=== PATIENT | male | born 1975 | race Caucasian/White ===

== ENCOUNTER 2017-08-11 09:26 | Observation (INO) ==
[2017-08-11] MEDS ORDERED: SALINE FLUSH 10ml SYRINGE IVF PRN (09:46)
--- NOTE | 2017-08-11 09:46 | Emergency Department Report ---
General Adult HPI - General Chief complaint: Abdominal Pain Stated complaint: right flank pain ,N/V unable to have bowel movemen Time Seen by Provider: 08/11/17 09:38 Source: patient Mode of arrival: ambulatory Limitations: no limitations - History of Present Illness HPI narrative: 41-year-old male presents the emergency department with a chief complaint of right sided flank discomfort radiating to his anterior abdomen. Patient denies any trauma, travel, poorly prepared food or recent antibiotic use. Patient notes that his discomfort started approximately 10 PM yesterday evening. Patient describes his pain as sharp. His pain is moderate. No other complaints or associated symptoms. He notes that his pain improved with fentanyl which was given from EMS prior to arrival to the emergency department today. Symptoms have been persistent in nature since onset. - Related Data Home Medications Medication Instructions Recorded Confirmed Acetaminophen/Diphenhydramine 4 each PO HS 08/11/17 08/11/17 [Acetaminophen Pm Caplet] Ibuprofen 4 - 6 cap PO PRN PRN 08/11/17 08/11/17 Allergies Allergy/AdvReac Type Severity Reaction Status Date / Time No Known Allergies Allergy Verified 08/11/17 09:37 Review of Systems Constitutional: Denies: fever, chills Eyes: Denies: eye pain, vision change ENT: Denies: ear pain, throat pain Cardiovascular: Denies: chest pain, palpitations Respiratory: Denies: cough, dyspnea Gastrointestinal: Reports: abdominal pain. Denies: nausea, vomiting, diarrhea Genitourinary: Denies: urgency, dysuria Musculoskeletal: Denies: back pain, arthralgia Integumentary: Denies: erythema, rash Neurological: Denies: headache, numbness Psychiatric: Denies: anxiety, depression Endocrine: Denies: fatigue, heat or cold intolerance Hematological/Lymphatic: Denies: easy bleeding, easy bruising Allergic/Immunologic: Denies: facial swelling, urticaria PFSH Patient Stated Medical History Hx Kidney Stones Yes Surgical History: Negative. Family History: Reviewed and noncontributory. - Social History Smoking status: Current every day smoker Substance use type: does not use Alcohol intake frequency: does not drink Physical Exam - Limitations Limitations: no limitations - General General appearance: alert, in no apparent distress - Normal Exams: Head:: Normocephalic without trauma Eyes:: Pupils are PERRLA w/ EOMI, No scleral icterus, irritation, or foreign bodies noted ENMT:: No facial trauma, nasal exudates, pharyngeal erythema, or exudates are noted Dental: No fractured, loose, or missing teeth noted Neck:: Full range of motion, without adenopathy, JVD, bruits or thyromegaly Chest/Respirations:: Clear all nixon, with good airflow, and symmetry bilaterally Cardiovascular:: Regular rate and rhythm, without murmur or gallop, Pulses 2+ all extremities, capillary refill, <2 seconds all extremities Abdomen:: Bowel sounds positive (soft. Right upper quadrant tenderness to palpation without rebound or guarding. No CVA tenderness.), non-distended, no hepatosplenomegaly, masses or bruits noted Lymphatic:: No lymphadenopathy, or lymphedema noted Musculoskeletal:: No tenderness, or deformity noted, good range of motion, all extremities Integumentary:: No rashes, hives, or bruising noted, hair and nails, without abnormality Neurological:: Patient is alert, and oriented, cranial nerves, motor/sensory/ cerebellar, exams w/o gross deficits, to observation Psychiatric:: Patient exhibits, appropriate attention, emotion and affect Course Vital Signs Temperature 98.3 F 08/11/17 09:25 Respiratory Rate 14 08/11/17 09:25 Temperature 98.3 F 08/11/17 09:25 Pulse Rate 71 08/11/17 13:15 Respiratory Rate 14 08/11/17 09:25 Blood Pressure 160/96 H 08/11/17 13:11 Pulse Oximetry 91 08/11/17 13:15 Medical Decision Making - [facility] Narrative Medical decision making narrative: Labs/imaging were discussed in detail with the patient and questions are answered. Patient is given IV hydration. Patient is given parental narcotic and antiemetic medications intravenously in the emergency Department. Patient is still having discomfort following treatment and is discussed with Dr. Eddy of general surgery who will take the patient to the operating room for cholelithiasis which is symptomatic. Patient is given 1 g of Invanz intravenously in the emergency Department. Patient is admitted to the service of Dr. Eddy in improved condition. No further orders from accepting physician is in agreement with the current plan of management. Patient and family are in agreement with the current plan of management. Patient is admitted to the hospital in improved condition. - Differential Diagnosis acute cholecystitis, cholelithiasis, renal stone, metabolic process, UTI - Lab Data Result diagrams: 08/11/17 10:41 08/11/17 10:41 Lab Results 08/11/17 08/11/17 08/11/17 Range/Units 10:32 10:41 10:41 WBC 14.1 H (4.5-11.0) T/MM3 RBC 4.86 (4.50-5.90) M/MM3 Hgb 15.4 (13.5-17.5) GM/DL Hct 44.5 (41-53) % MCV 91.6 (80-100) UM3 MCH 31.7 (26-34) UUG MCHC 34.6 (31-37) GM/DL RDW Std Deviation 41.6 (36.9-50.2) FL Plt Count 219 (130-400) T/MM3 MPV 9.9 (9.4-12.4) UM3 Immature Gran % (Auto) 0.2 (0.0-0.5) % Neut % (Auto) 82.9 H (33-66) % Lymph % (Auto) 11.8 L (23-45) % Barren % (Auto) 4.6 (0-9.0) % Eos % (Auto) 0.4 (0-4) % Baso % (Auto) 0.1 (0-2) % Neut # (Auto) 11.7 H (1.8-7.7) T/MM3 Lymph # (Auto) 1.7 (1-4.8) T/MM3 Barren # (Auto) 0.7 (0-0.8) T/MM3 Eos # (Auto) 0.1 (0-0.5) T/MM3 Baso # (Auto) 0.0 (0-0.2) T/MM3 Abs Immat Gran (auto) 0.03 (0.00-0.03) T/MM3 Turbidity < 20 (0-20) Sodium 144 (134-144) MEQ/L Potassium 3.9 (3.6-5) MEQ/L Chloride 109 H (98-107) MEQ/L Carbon Dioxide 26 (22-30) MEQ/L Anion Gap 9 (5-15) MEQ/L BUN 17.0 (9-20) MG/DL Creatinine 0.8 (0.8-1.5) MG/DL GFR Calculation 108 BUN/Creatinine Ratio 21 (6-26) RATIO Glucose 122 H (75-110) MG/DL Calculated Osmolality 280 (261-280) MOSM/KG Calcium 9.7 (8.4-10.2) MG/DL Total Bilirubin 0.40 (0.20-1.30) MG/DL Icterus Index < 2 (0-7) AST 21 (17-59) U/L ALT 53 (21-72) U/L Alkaline Phosphatase 57 (38-126) U/L Troponin I < 0.012 (0-0.12) ng/ml Total Protein 7.4 (6.3-8.2) G/DL Albumin 4.5 (3.5-5.0) G/DL Globulin 2.9 (2.4-3.6) G/DL Albumin/Globulin Ratio 1.6 (1.1-2.2) RATIO Lipase 19 L (23-300) U/L Specimen Hemolysis < 15 (0-25) Ur Collection Type Urine, clean catch Urine Color Yellow (YELLOW) Urine Clarity Clear Urine pH 6.0 (5.0-8.0) Ur Specific Sharon 1.025 (1.015-1.025) Urine Protein Negative (NEGATIVE) Urine Glucose (UA) Negative (NEGATIVE) Urine Ketones Trace A (NEGATIVE) Urine Occult Blood Negative (NEGATIVE) Urine Nitrate Negative (NEGATIVE) Urine Bilirubin Negative (NEGATIVE) Urine Urobilinogen 0.2 (NORMAL) EU/DL Ur Leukocyte Esterase Negative (NEGATIVE) Urinalysis Comment Microscopic not ind. - Radiology Data CT abdomen/pelvis: Cholelithiasis otherwise no acute processes. - EKG Data EKG #1 EKG results narrative: Sinus bradycardia. 56 bpm. No STEMI. Disposition Clinical Impression: cholelithiasis Disposition: 02 To [facility] Condition: Improved Time of Disposition: 12:10 (Admit. Dr. Eddy.) - Seen By: physician
[2017-08-11] MEDS ORDERED: ONDANSETRON 4 MG/2 ML INJECTION IVP ONE (10:31)
[2017-08-11] MEDS ORDERED: FentaNYL 100 MCG/2 ML INJECTION IVP ONE (10:31)
[2017-08-11] MEDS: SALINE FLUSH 10ml SYRINGE IVF PRN ×2 (10:53→10:56)
--- NOTE | 2017-08-11 11:08 | CT Scan Report ---
Indication: Flank pain PROCEDURE: CT renal wo con (stone yanique): Encounter: Initial Comparison: 07/14/2017 Findings: CT ABDOMEN AND PELVIS WITHOUT CONTRAST: INDICATION: Flank pain Abdominal pain Automated Exposure Control and Iterative Reconstruction dose reducing techniques were utilized. COMPARISON: None. CT ABDOMEN: There are multiple gallstones within the gallbladder which is thin-walled and nondistended. Included portions of the lung bases are clear. The upper abdominal structures are unremarkable in contour. There is a small intrarenal nonobstructing urinary calculus in the lower pole of the right kidney, unchanged. No hydronephrosis or perinephric collection. CT PELVIS: A normal appendix is identified. The urinary bladder is not distended. There is no pelvic sidewall adenopathy. No free fluid. No definite bony destructive process. No definite evidence for a distal ureteral obstructing calculus. IMPRESSION: Nephrolithiasis on the right and cholecystitis without evidence for obstructing ureteral calculus. Previously noted calculus in the distal left ureter is no longer seen. .
[2017-08-11] MEDS ORDERED: NS 1,000 ML IV ONE (12:43)
[2017-08-11] MEDS ORDERED: HYDROMORPHONE 2 MG/ML INJECTION IVP ONE (12:43)
[2017-08-11] MEDS ORDERED: ERTAPENEM 1 G in NS 100 ML IV ONE (12:43)
[2017-08-11] MEDS ORDERED: HYDROMORPHONE 2 MG/ML INJECTION IVP PRN (12:59)
[2017-08-11] MEDS ORDERED: ONDANSETRON 4 MG/2 ML INJECTION IVP PRN (12:59)
--- NOTE | 2017-08-11 13:07 | General Surg History&Physical ---
- History of Present Illness Chief complaint: Epigastric and RUQ pain, nausea, bvomiting HPI: Per Dr. Duran [facility] Patient Stated Medical History Hx Kidney Stones Back pain Surgical History: None Family History: Father - HTN Mother - HTN, DM, Stroke - Social History Smoking status: Current every day smoker Substance use type: does not use Alcohol intake frequency: former alcohol drinker (quit 4-5 years ago) Current occupational status: unemployed Medications Home Medications Medication Instructions Recorded Confirmed Type No known Home medications [No home 07/14/17 08/11/17 History meds] Allergies Allergy/AdvReac Type Severity Reaction Status Date / Time No Known Allergies Allergy Verified 08/11/17 09:37 Review of Systems 10-point ROS: negative except for HPI and the following: - Eyes/Ears/Nose/Throat Ear Nose Throat: Present: loose/chipped/cracked teeth - Gastrointestinal Gastrointestinal: Present: nausea, vomiting - Musculoskeletal Musculoskeletal: Present: back pain, joint pain - Vital Signs Last Vital Signs Temp 98.3 F 08/11/17 09:25 Pulse 61 08/11/17 09:32 Resp 14 08/11/17 09:25 BP 153/88 H 08/11/17 09:32 Pulse Ox 93 08/11/17 09:32 - Laboratory Result Diagrams: 08/11/17 10:41 08/11/17 10:41 General Surgery Results - Results Labs: 08/11/17 10:41 08/11/17 10:41 Hospital Course Summary Disclaimer: The visit summary below is not to be considered part of the above Progress Note.
[2017-08-11 13:45] VITALS: BMI 33.7
[2017-08-11] MEDS: NS 1,000 ML IV SCH (16:13)
[2017-08-12 01:00] VITALS: BP 149/92; PULSE 74; RESP 16; TEMP 97.5; O2SAT 96
[2017-08-12] MEDS: NS 1,000 ML IV SCH (02:06)
--- NOTE | 2017-08-12 07:08 | History and Physical ---
FINDINGS Mr. Delgadillo is a 41-year-old gentleman whom I was asked to see earlier today by the emergency room physician as a result of the patient's history and physical findings of severe abdominal pain in conjunction with the radiographic evidence for cholelithiasis. I had informed the ER physician from his report that the patient should be admitted for further care on an outpatient basis. Upon seeing the patient later this afternoon the patient informed me that his pain began yesterday. The pain was mostly located within his epigastric region, but he states that it did radiate in towards his back and right upper quadrant. Pain was constant in nature and quite severe per his report. The patient states that he began to develop severe nausea and vomiting after the onset of pain. The patient states that as a result of this severe pain he presented to the emergency room for further evaluation. Pain has been somewhat alleviated after receiving intravenous narcotics. This afternoon the patient states that he is beginning to "feel a little better." He denied specific aggravating symptoms when the pain was present. PAST MEDICAL HISTORY Performed by my nurse practitioner, Diaz Daly. PAST SURGICAL HISTORY Performed by my nurse practitioner, Diaz Daly. MEDICATIONS Performed by my nurse practitioner, Diaz Daly. ALLERGIES Performed by my nurse practitioner, Diaz Daly. SOCIAL HISTORY Performed by my nurse practitionerDiaz. FAMILY HISTORY Performed by my nurse practitioner, Diaz Daly. REVIEW OF SYSTEMS Performed by my nurse practitioner, Diaz Daly. PHYSICAL EXAMINATION Mr. Delgadillo is a 41-year-old male who does not appear to be in acute distress this ate afternoon/evening. VITALS: Temperature 96.7, pulse 67, respirations 14, blood pressure 154/96. HEENT: Normocephalic. Pupils equal, round, reactive to light and accommodation. NECK: Supple without lymphadenopathy. CHEST: Clear auscultation bilaterally. HEART: Regular and rhythm. Normal S1 and S2. ABDOMEN: Palpation of the abdomen revealed it to be soft with some minimal tenderness this evening being noted within the right upper quadrant. He also had a slight component of some discomfort within the epigastric region. There was no evidence for involuntary or voluntary guarding. I did not appreciate any evidence for hepatomegaly or other abnormal masses. EXTREMITIES: Without clubbing, cyanosis, or edema. NEURO: Cranial nerves II-XII grossly intact. Patient is without focal motor or sensory deficits. LABORATORY/RADIOGRAPH EVALUATION I did review the patient's chart electronically. White count was elevated at 14.1. CMP was obtained and found to be essentially within normal limits. Lipase was normal at 19. A renal CT scan and CT scan of his abdomen and pelvis were obtained. The patient was found to have small intrarenal nonobstructing urinary calculi within the lower pole of the right kidney. This was unchanged from prior CT scan. There was no evidence for hydronephrosis or perinephric collection. Additionally, the patient was found to have multiple gallstones within the gallbladder. Final impression was that of nephrolithiasis on the right and dictated report says cholecystitis but likely meant cholelithiasis without evidence for obstructing ureteral calculus. ASSESSMENT 41-year-old gentleman with probable symptomatic cholelithiasis. PLAN When I spoke with the ER physician earlier today when I was in the process of operating, I informed the ER physician that with patient's history for ongoing pain that was not controlled after receiving intravenous narcotics initially that I would recommend going ahead and placing him in the hospital as an outpatient for further care. Given his leukocytosis, I had also recommended that we initiate empiric treatment for possible cholecystitis. I instructed to give a gram of Invanz. Since the patient is not in acute distress this evening , we will go ahead and give the patient some clear liquids. It was my recommendation to the patient, given his findings consistent with that of symptomatic cholelithiasis and the finding of cholelithiasis upon radiographic evaluation, that tomorrow we proceed with surgical intervention. Specifically, I discussed with the patient robotic-assisted laparoscopic cholecystectomy. I did discuss with the patient what this procedure would entail and its associated risks which include but are not limited to bleeding, infection, potential conversion to an open procedure, potential injury to adjacent structures, especially the common bile duct. The patient understood and agreed with the proposed plan at this time. AMY
[2017-08-12] MEDS ORDERED: ERTAPENEM 1 G in NS 100 ML IV SCH (09:00)
== END 2017-08-12 01:15 | disposition left against medical advice (07) ==
LOC: SRG 09:26 → ED 09:26 → SRG 13:35
PROVIDERS: ADMIT Surgery; ATTEND Surgery